=== PATIENT | male | born 1935 | race Caucasian/White ===

== ENCOUNTER 2021-10-10 19:40 | Emergency (ER) | payer MEDICARE ==
[~2021-10-10] VITALS: Ht 193 cm; Wt 108.9 kg
[2021-10-11 00:35] LABS: BASOPHILS # (AUTO) 0.1 (0.0-0.1); BASOPHILS % 0.5 % (0.0-1.0); EOSINOPHILS # (AUTO) 0.3 (0.0-0.4); HEMATOCRIT 35.8 % (38.2-49.6); HEMOGLOBIN 10.8 g/dL (14.0-18.0); LYMPHOCYTES # (AUTO) 2.5 (1.0-3.2); LYMPHOCYTES % 16.3 % (18.0-39.1); MEAN CORPUSCULAR HEMOGLOBIN 23.8 pg (28-32); MEAN CORPUSCULAR HGB CONC 30.2 g/dL (31-35); MONOCYTES # (AUTO) 1.2 (0.2-0.8); MONOCYTES % 7.9 % (4.4-11.3); NEUTROPHILS # (AUTO) 10.9 (2.1-6.9); PLATELET COUNT 286 x10e3/uL (140-360); RED BLOOD COUNT 4.53 x10e6/uL (4.3-5.7); RED CELL DISTRIBUTION WIDTH 16.9 % (11.7-14.4)
[2021-10-11 00:46] LABS: ANION GAP 15.9 mmol/L (8-16); CREATININE, SERUM 0.68 mg/dL (0.72-1.25); POTASSIUM 3.9 mmol/L (3.5-5.1)
[2021-10-11 02:02] LABS: CLARITY,URINE SL CLOUDY (CLEAR); COLOR,URINE YELLOW (YELLOW); KETONES,URINE NEGATIVE (NEGATIVE); LEUKOCYTE ESTERASE ,URINE SMALL (NEGATIVE); NITRITE,URINE NEGATIVE (NEGATIVE); PROTEIN,URINE DIPSTICK NEGATIVE (NEGATIVE); URINE UROBILINOGEN 0.2 mg/dL (0.2 - 1)
[2021-10-11 02:04] LABS: BACTERIA,URINE FEW /HPF; EPITHELIAL CELLS,URINE RARE /LPF; WBC,URINE (MAN) 21-50 /HPF (0-5)
[2021-10-11] MEDS ORDERED: LEVOFLOXACIN750 MG PO (02:15)
[2021-10-12] MEDS ORDERED: SPIRONOLACTONE25 MG PO (15:28)
[2021-10-12] MEDS ORDERED: FLOMAX0.4 MG PO (15:28)
[2021-10-12] MEDS ORDERED: ASPIRIN EC81 MG PO (15:28)
[2021-10-12] MEDS ORDERED: FINASTERIDE5 MG PO (15:28)
[2021-10-12] MEDS ORDERED: ATORVASTATIN CA10 MG PO (15:28)
[2021-10-12] MEDS ORDERED: METOPROLOL SUCC25 MG PO (15:28)
[2021-10-12] MEDS ORDERED: METFORMIN HCL500 MG PO (15:28)
== END 2021-10-11 03:55 | disposition home or self-care (01) ==
LOC: ER 19:58
DX: Z46.6 Encounter for fitting and adjustment of urinary device (principal); R33.9 Retention of urine, unspecified; R10.30 Lower abdominal pain, unspecified; E11.65 Type 2 diabetes mellitus with hyperglycemia; I10 Essential (primary) hypertension; E78.5 Hyperlipidemia, unspecified
CPT/HCPCS: 36415; 51703; 80048; 81001; 85025; 99284

== ENCOUNTER 2021-10-12 08:10 | Inpatient (IN) | payer MEDICARE ==
[~2021-10-12] VITALS: Ht 193 cm; Wt 108.9 kg
[~2021-10-12 08:10] MED LIST: LEVOFLOXACIN750 MG PO
[2021-10-12] MEDS ORDERED: ONDANSETRON HCL INJ 2MG/ML 2ML 2 MG/ML VIAL IV STA (08:27)
[2021-10-12] MEDS ORDERED: Morphine 2mg Syringe 2 MG/ML SYR IV STA (08:27)
[2021-10-12] MEDS ORDERED: LIDOCAINE/PRILOCAINE 2.5-2.5% KIT TOP ONE (08:30)
[2021-10-12] MEDS ORDERED: Morphine 2mg Syringe 2 MG/ML SYR IV PRN (10:00)
[2021-10-12] MEDS ORDERED: ONDANSETRON HCL INJ 2MG/ML 2ML 2 MG/ML VIAL IV PRN (10:00)
[2021-10-12 10:08] LABS: BASOPHILS # (AUTO) 0.1 (0.0-0.1); BASOPHILS % 0.7 % (0.0-1.0); EOSINOPHILS # (AUTO) 0.2 (0.0-0.4); HEMATOCRIT 35.2 % (38.2-49.6); HEMOGLOBIN 10.7 g/dL (14.0-18.0); LYMPHOCYTES # (AUTO) 1.2 (1.0-3.2); LYMPHOCYTES % 11.2 % (18.0-39.1); MEAN CORPUSCULAR HGB CONC 30.4 g/dL (31-35); MEAN CORPUSCULAR VOLUME 78.9 fL (81-99); MONOCYTES % 8.7 % (4.4-11.3); NEUTROPHILS # (AUTO) 8.5 (2.1-6.9); NEUTROPHILS % 76.9 % (38.7-80.0); PLATELET COUNT 271 x10e3/uL (140-360); RED BLOOD COUNT 4.46 x10e6/uL (4.3-5.7); RED CELL DISTRIBUTION WIDTH 17.2 % (11.7-14.4)
[2021-10-12 10:16] LABS: CLARITY,URINE HAZY (CLEAR); COLOR,URINE YELLOW (YELLOW); KETONES,URINE NEGATIVE (NEGATIVE); LEUKOCYTE ESTERASE ,URINE MODERATE (NEGATIVE); NITRITE,URINE POSITIVE (NEGATIVE); PROTEIN,URINE DIPSTICK 2+ (NEGATIVE); URINE UROBILINOGEN 0.2 mg/dL (0.2 - 1)
[2021-10-12 10:18] LABS: INR 1.05; PROTHROMBIN TIME 14.6 seconds (11.9-14.5)
[2021-10-12 10:19] LABS: BACTERIA,URINE MANY /HPF; EPITHELIAL CELLS,URINE FEW /LPF; RBC,URINE >50 /HPF (0-5); WBC,URINE (MAN) >50 /HPF (0-5)
[2021-10-12 10:19] LABS: PARTIAL THROMBOPLASTIN TIME 29.8 seconds (23.8-35.5)
[2021-10-12 10:27] LABS: ALBUMIN 2.9 g/dL (3.5-5.0); ALBUMIN/GLOBULIN RATIO 0.9 (0.8-2.0); ANION GAP 14.7 mmol/L (8-16); CALCIUM 8.8 mg/dL (8.4-10.2); CREATININE, SERUM 0.7 mg/dL (0.72-1.25); POTASSIUM 3.7 mmol/L (3.5-5.1)
[2021-10-12] MEDS ORDERED: HYDROCODONE/APAP 5MG-325MG TAB PO PRN (10:45)
[2021-10-12] MEDS: SODIUM CHLORIDE 0.9% 1000ML 1,000 ML IV SCH (11:00)
[2021-10-12] MEDS ORDERED: IOPAMIDOL 370 MG/ML 100 ML INFUS..BTL INJ ONE (11:49)
[2021-10-12 12:02] VITALS: BP 107/81
[2021-10-12] MEDS ORDERED: SODIUM CHLORIDE 0.9% 250ML 250 ML ONE (13:14)
[2021-10-12 13:41] VITALS: BP 107/81
[2021-10-12 14:09] VITALS: BP 107/81
[2021-10-12] MEDS ORDERED: SPIRONOLACTONE25 MG PO (15:28)
[2021-10-12] MEDS ORDERED: METFORMIN HCL500 MG PO (15:28)
[2021-10-12] MEDS ORDERED: FLOMAX0.4 MG PO (15:28)
[2021-10-12] MEDS ORDERED: FINASTERIDE5 MG PO (15:28)
[2021-10-12] MEDS ORDERED: METOPROLOL SUCC25 MG PO (15:28)
[2021-10-12] MEDS ORDERED: ATORVASTATIN CA10 MG PO (15:28)
[2021-10-12] MEDS ORDERED: ASPIRIN EC81 MG PO (15:28)
[2021-10-12 15:45] VITALS: BP 98/64
[2021-10-12] MEDS: SENNA-S TABLET PO SCH (17:00)
[2021-10-12] MEDS: FAMOTIDINE 20 MG TAB PO SCH (17:16)
[2021-10-12 20:00] VITALS: BP 107/62
[2021-10-12 22:45] VITALS: BP 107/62
[2021-10-13] VITALS (12 sets, daily range): BP systolic 106–126; BP diastolic 60–81
[2021-10-13] MEDS: SODIUM CHLORIDE 0.9% 1000ML 1,000 ML IV SCH ×2 (05:04→12:40)
[2021-10-13 05:47] LABS: BASOPHILS # (AUTO) 0.1 (0.0-0.1); EOSINOPHILS # (AUTO) 0.5 (0.0-0.4); EOSINOPHILS % 6.7 % (0.0-6.0); HEMATOCRIT 30.6 % (38.2-49.6); HEMOGLOBIN 9.6 g/dL (14.0-18.0); LYMPHOCYTES # (AUTO) 1.6 (1.0-3.2); LYMPHOCYTES % 19.6 % (18.0-39.1); MEAN CORPUSCULAR HEMOGLOBIN 24.1 pg (28-32); MEAN CORPUSCULAR HGB CONC 31.4 g/dL (31-35); MEAN CORPUSCULAR VOLUME 76.7 fL (81-99); MONOCYTES # (AUTO) 0.8 (0.2-0.8); MONOCYTES % 9.9 % (4.4-11.3); NEUTROPHILS % 62.5 % (38.7-80.0); PLATELET COUNT 248 x10e3/uL (140-360); RED BLOOD COUNT 3.99 x10e6/uL (4.3-5.7)
[2021-10-13 06:07] LABS: ALBUMIN 2.6 g/dL (3.5-5.0); ALBUMIN/GLOBULIN RATIO 0.9 (0.8-2.0); ANION GAP 13.1 mmol/L (8-16); CALCIUM 8.1 mg/dL (8.4-10.2); CREATININE, SERUM 0.66 mg/dL (0.72-1.25); POTASSIUM 4.1 mmol/L (3.5-5.1)
[2021-10-13] MEDS: FAMOTIDINE 20 MG TAB PO SCH ×2 (09:01→17:56)
[2021-10-13] MEDS: SENNA-S TABLET PO SCH ×2 (09:02→17:56)
[2021-10-14] VITALS (7 sets, daily range): BP systolic 108–133; BP diastolic 62–81
[2021-10-14] MEDS: SODIUM CHLORIDE 0.9% 1000ML 1,000 ML IV SCH (02:00)
[2021-10-14] MEDS: SENNA-S TABLET PO SCH ×2 (10:31→17:00)
[2021-10-14] MEDS: FAMOTIDINE 20 MG TAB PO SCH ×2 (10:32→16:30)
[2021-10-14] MEDS: METOPROLOL SUCCINATE 25 MG TAB XL PO SCH (10:35)
[2021-10-14] MEDS ORDERED: ONDANSETRON HCL 4 MG ORAL DISINTEGRATING TAB PO PRN (12:45)
[2021-10-14] MEDS: TAMSULOSIN HCL 0.4 MG CAP PO SCH (17:00)
[2021-10-14] MEDS ORDERED: ATORVASTATIN 40 MG TAB PO SCH (21:00)
[2021-10-15] VITALS: BP 146/80
[2021-10-15 04:00] VITALS: BP 146/95
[2021-10-15] MEDS: SODIUM CHLORIDE 0.9% 1000ML 1,000 ML IV SCH ×2 (05:19→06:03)
[2021-10-15] MEDS: METOPROLOL SUCCINATE 25 MG TAB XL PO SCH (05:21)
[2021-10-15 07:54] VITALS: BP 130/94
[2021-10-15] MEDS: SENNA-S TABLET PO SCH (08:41)
[2021-10-15] MEDS: TAMSULOSIN HCL 0.4 MG CAP PO SCH (08:41)
[2021-10-15] MEDS: FAMOTIDINE 20 MG TAB PO SCH (08:41)
[2021-10-15] MEDS ORDERED: FINASTERIDE 5 MG TAB PO SCH (09:00)
[2021-10-15] MEDS ORDERED: FLUCONAZOLE 100 MG TAB PO SCH (09:00)
[2021-10-15 09:32] LABS: ANION GAP 14.7 mmol/L (8-16); CALCIUM 8.3 mg/dL (8.4-10.2); CREATININE, SERUM 0.64 mg/dL (0.72-1.25); POTASSIUM 3.7 mmol/L (3.5-5.1)
[2021-10-15 09:44] LABS: BASOPHILS # (AUTO) 0.1 (0.0-0.1); BASOPHILS % 1.1 % (0.0-1.0); EOSINOPHILS # (AUTO) 0.5 (0.0-0.4); EOSINOPHILS % 5.6 % (0.0-6.0); HEMATOCRIT 37.8 % (38.2-49.6); LYMPHOCYTES # (AUTO) 1.6 (1.0-3.2); LYMPHOCYTES % 16.6 % (18.0-39.1); MEAN CORPUSCULAR HEMOGLOBIN 23.8 pg (28-32); MEAN CORPUSCULAR HGB CONC 29.1 g/dL (31-35); MEAN CORPUSCULAR VOLUME 81.6 fL (81-99); MONOCYTES # (AUTO) 0.8 (0.2-0.8); MONOCYTES % 8.8 % (4.4-11.3); NEUTROPHILS # (AUTO) 6.4 (2.1-6.9); NEUTROPHILS % 67.7 % (38.7-80.0); PLATELET COUNT 235 x10e3/uL (140-360); RED BLOOD COUNT 4.63 x10e6/uL (4.3-5.7); RED CELL DISTRIBUTION WIDTH 17.2 % (11.7-14.4)
[2021-10-15 12:29] VITALS: BP 126/63
== END 2021-10-15 15:45 | disposition home or self-care (01) | DRG 699 ==
LOC: ER 08:14 → ERHOLD 10:04 → MED/SURG2 11:22
PROVIDERS: ADMIT Internal Medicine; ATTEND Internal Medicine
DX: T83.511A Infection and inflammatory reaction due to indwelling urethral catheter, initial encounter (principal); N13.8 Other obstructive and reflux uropathy; N41.0 Acute prostatitis; N39.0 Urinary tract infection, site not specified; I10 Essential (primary) hypertension; E11.9 Type 2 diabetes mellitus without complications; N40.1 Benign prostatic hyperplasia with lower urinary tract symptoms; R33.8 Other retention of urine; I48.91 Unspecified atrial fibrillation; E78.5 Hyperlipidemia, unspecified; T83.091A Other mechanical complication of indwelling urethral catheter, initial encounter; N31.9 Neuromuscular dysfunction of bladder, unspecified; D64.9 Anemia, unspecified; E66.9 Obesity, unspecified; R39.14 Feeling of incomplete bladder emptying; Z95.5 Presence of coronary angioplasty implant and graft; Z86.73 Personal history of transient ischemic attack (TIA), and cerebral infarction without residual deficits; Z95.818 Presence of other cardiac implants and grafts; Z82.49 Family history of ischemic heart disease and other diseases of the circulatory system; Z68.29 Body mass index [BMI] 29.0-29.9, adult; Z79.82 Long term (current) use of aspirin; Z79.84 Long term (current) use of oral hypoglycemic drugs
CPT/HCPCS: 0223U; 36415; 51700; 71045; 71046; 74178; 80048; 80053; 81001; 82948; 83880; 85025; 85610; 85730; 87040; 87086; 87186; 96360; 96361; 99251; 99285; J0696; J2270; J2405; J2543; J7030; J7050; Q9967

== ENCOUNTER 2021-10-16 11:15 | Inpatient (IN) | payer MEDICARE ==
[~2021-10-16] VITALS: Ht 193 cm; Wt 158.8 kg
[~2021-10-16 11:15] MED LIST changes: +ASPIRIN EC81 MG PO; +ATORVASTATIN CA10 MG PO; +FINASTERIDE5 MG PO; +FLOMAX0.4 MG PO; +METFORMIN HCL500 MG PO; +METOPROLOL SUCC25 MG PO; +SPIRONOLACTONE25 MG PO
[2021-10-16 12:55] LABS: BASOPHILS # (AUTO) 0.1 (0.0-0.1); BASOPHILS % 0.7 % (0.0-1.0); EOSINOPHILS # (AUTO) 0.3 (0.0-0.4); EOSINOPHILS % 2.5 % (0.0-6.0); HEMATOCRIT 36.5 % (38.2-49.6); HEMOGLOBIN 11.1 g/dL (14.0-18.0); LYMPHOCYTES # (AUTO) 1.4 (1.0-3.2); LYMPHOCYTES % 11.9 % (18.0-39.1); MEAN CORPUSCULAR HEMOGLOBIN 23.9 pg (28-32); MEAN CORPUSCULAR HGB CONC 30.4 g/dL (31-35); MEAN CORPUSCULAR VOLUME 78.7 fL (81-99); MONOCYTES % 8.2 % (4.4-11.3); NEUTROPHILS % 76.4 % (38.7-80.0); PLATELET COUNT 293 x10e3/uL (140-360); RED BLOOD COUNT 4.64 x10e6/uL (4.3-5.7); RED CELL DISTRIBUTION WIDTH 17.1 % (11.7-14.4)
[2021-10-16 13:03] LABS: INR 1.03; PROTHROMBIN TIME 14.4 seconds (11.9-14.5)
[2021-10-16 13:12] LABS: ALBUMIN 2.9 g/dL (3.5-5.0); ALBUMIN/GLOBULIN RATIO 0.8 (0.8-2.0); CALCIUM 8.7 mg/dL (8.4-10.2); CREATININE, SERUM 0.67 mg/dL (0.72-1.25)
[2021-10-16 13:14] LABS: COLOR,URINE YELLOW (YELLOW)
[2021-10-16 13:15] LABS: CLARITY,URINE SL CLOUDY (CLEAR); KETONES,URINE NEGATIVE (NEGATIVE); LEUKOCYTE ESTERASE ,URINE SMALL (NEGATIVE); NITRITE,URINE NEGATIVE (NEGATIVE); PROTEIN,URINE DIPSTICK 1+ (NEGATIVE); URINE UROBILINOGEN 0.2 mg/dL (0.2 - 1)
[2021-10-16 13:24] LABS: BACTERIA,URINE FEW /HPF; EPITHELIAL CELLS,URINE FEW /LPF; RBC,URINE >50 /HPF (0-5)
[2021-10-16 18:12] VITALS: BP 153/96
[2021-10-16 18:24] VITALS: BP 153/96
[2021-10-16 20:00] VITALS: BP_SYST 120; BP_SYST 153; BP_DIAS 68; BP_DIAS 96
[2021-10-16] MEDS: ATORVASTATIN 40 MG TAB PO SCH (21:00)
[2021-10-16] MEDS: TAMSULOSIN HCL 0.4 MG CAP PO SCH (21:00)
[2021-10-16] MEDS: METOPROLOL SUCCINATE 25 MG TAB XL PO SCH (22:30)
[2021-10-16] MEDS ORDERED: HYDRALAZINE HCL 20 MG/ML VIAL IV PRN (22:30)
[2021-10-16] MEDS ORDERED: ALBUTEROL/IPRATROPIUM 3 ML NEB NEB PRN (22:30)
[2021-10-16] MEDS ORDERED: ACETAMINOPHEN 325 MG TAB PO PRN (22:30)
[2021-10-16] MEDS: ENOXAPARIN SOD INJ 60 MG/0.6 ML SYR SC SCH (22:30)
[2021-10-16] MEDS ORDERED: HYDROCODONE/APAP 7.5MG-325MG 1 EA TAB PO PRN (22:30)
[2021-10-16] MEDS ORDERED: SODIUM CHLORIDE 0.9% 250ML 250 ML ONE (23:38)
[2021-10-17] VITALS (8 sets, daily range): BP systolic 115–137; BP diastolic 71–79
[2021-10-17] MEDS: ALBUTEROL/IPRATROPIUM 3 ML NEB NEB SCH ×4 (01:03→19:03)
[2021-10-17 05:38] LABS: BASOPHILS # (AUTO) 0.1 (0.0-0.1); BASOPHILS % 0.8 % (0.0-1.0); EOSINOPHILS # (AUTO) 0.5 (0.0-0.4); EOSINOPHILS % 6.4 % (0.0-6.0); HEMATOCRIT 30.9 % (38.2-49.6); HEMOGLOBIN 9.4 g/dL (14.0-18.0); LYMPHOCYTES # (AUTO) 1.6 (1.0-3.2); LYMPHOCYTES % 20.8 % (18.0-39.1); MEAN CORPUSCULAR HEMOGLOBIN 23.5 pg (28-32); MEAN CORPUSCULAR HGB CONC 30.4 g/dL (31-35); MEAN CORPUSCULAR VOLUME 77.3 fL (81-99); MONOCYTES # (AUTO) 0.8 (0.2-0.8); MONOCYTES % 9.9 % (4.4-11.3); NEUTROPHILS # (AUTO) 4.8 (2.1-6.9); NEUTROPHILS % 61.7 % (38.7-80.0); PLATELET COUNT 256 x10e3/uL (140-360); RED CELL DISTRIBUTION WIDTH 17.1 % (11.7-14.4)
[2021-10-17 06:02] LABS: ANION GAP 14.6 mmol/L (8-16); CALCIUM 8.3 mg/dL (8.4-10.2); CREATININE, SERUM 0.59 mg/dL (0.72-1.25); POTASSIUM 3.6 mmol/L (3.5-5.1)
[2021-10-17] MEDS: ENOXAPARIN SOD INJ 60 MG/0.6 ML SYR SC SCH ×2 (09:11→21:06)
[2021-10-17] MEDS: FINASTERIDE 5 MG TAB PO SCH (09:11)
[2021-10-17] MEDS: SENNA-S TABLET PO SCH ×2 (09:11→16:46)
[2021-10-17] MEDS: SODIUM CHLORIDE 0.9% 1000ML 1,000 ML IV SCH (13:48)
[2021-10-17] MEDS ORDERED: LIDOCAINE HCL 1% LOCAL INJ 20 ML VIAL ONE (14:13)
[2021-10-17] MEDS ORDERED: SODIUM CHLORIDE 0.9% 500ML 500 ML ONE (14:13)
[2021-10-17] MEDS: TAMSULOSIN HCL 0.4 MG CAP PO SCH (21:05)
[2021-10-17] MEDS: ATORVASTATIN 40 MG TAB PO SCH (21:05)
[2021-10-17] MEDS: METOPROLOL SUCCINATE 25 MG TAB XL PO SCH (21:06)
[2021-10-18] VITALS (8 sets, daily range): BP systolic 127–168; BP diastolic 66–97
[2021-10-18] MEDS: ALBUTEROL/IPRATROPIUM 3 ML NEB NEB SCH ×4 (00:10→19:00)
[2021-10-18 05:02] LABS: BASOPHILS # (AUTO) 0.1 (0.0-0.1); BASOPHILS % 0.9 % (0.0-1.0); EOSINOPHILS # (AUTO) 0.4 (0.0-0.4); EOSINOPHILS % 5.7 % (0.0-6.0); HEMATOCRIT 30.2 % (38.2-49.6); HEMOGLOBIN 9.6 g/dL (14.0-18.0); LYMPHOCYTES # (AUTO) 1.5 (1.0-3.2); LYMPHOCYTES % 19.6 % (18.0-39.1); MEAN CORPUSCULAR HEMOGLOBIN 24.3 pg (28-32); MEAN CORPUSCULAR HGB CONC 31.8 g/dL (31-35); MEAN CORPUSCULAR VOLUME 76.5 fL (81-99); MONOCYTES # (AUTO) 0.8 (0.2-0.8); MONOCYTES % 10.1 % (4.4-11.3); NEUTROPHILS # (AUTO) 4.9 (2.1-6.9); NEUTROPHILS % 63.3 % (38.7-80.0); PLATELET COUNT 251 x10e3/uL (140-360); RED BLOOD COUNT 3.95 x10e6/uL (4.3-5.7); RED CELL DISTRIBUTION WIDTH 17.1 % (11.7-14.4)
[2021-10-18] MEDS: SODIUM CHLORIDE 0.9% 1000ML 1,000 ML IV SCH (05:12)
[2021-10-18 05:18] LABS: ALBUMIN 2.4 g/dL (3.5-5.0); ALBUMIN/GLOBULIN RATIO 0.8 (0.8-2.0); ANION GAP 12.6 mmol/L (8-16); CALCIUM 8.1 mg/dL (8.4-10.2); CREATININE, SERUM 0.58 mg/dL (0.72-1.25); POTASSIUM 3.6 mmol/L (3.5-5.1)
[2021-10-18] MEDS: SENNA-S TABLET PO SCH ×2 (09:05→17:31)
[2021-10-18] MEDS: FINASTERIDE 5 MG TAB PO SCH (09:06)
[2021-10-18] MEDS: ENOXAPARIN SOD INJ 60 MG/0.6 ML SYR SC SCH ×2 (09:06→20:41)
[2021-10-18] MEDS: ATORVASTATIN 40 MG TAB PO SCH (20:41)
[2021-10-18] MEDS: TAMSULOSIN HCL 0.4 MG CAP PO SCH (20:41)
[2021-10-18] MEDS: METOPROLOL SUCCINATE 25 MG TAB XL PO SCH (20:41)
[2021-10-19] VITALS (8 sets, daily range): BP systolic 136–157; BP diastolic 73–91
[2021-10-19] MEDS: ALBUTEROL/IPRATROPIUM 3 ML NEB NEB SCH ×4 (01:15→19:10)
[2021-10-19] MEDS: SODIUM CHLORIDE 0.9% 1000ML 1,000 ML IV SCH (02:43)
[2021-10-19] MEDS: FINASTERIDE 5 MG TAB PO SCH (08:15)
[2021-10-19] MEDS: SENNA-S TABLET PO SCH ×2 (08:15→16:25)
[2021-10-19] MEDS ORDERED: POTASSIUM CHLORIDE 10MEQ EA PO NR (09:45)
[2021-10-19] MEDS ORDERED: FUROSEMIDE INJ 10 MG/ML 4 ML VIAL IV NR (09:45)
[2021-10-19] MEDS: TAMSULOSIN HCL 0.4 MG CAP PO SCH (21:31)
[2021-10-19] MEDS: METOPROLOL SUCCINATE 25 MG TAB XL PO SCH (21:31)
[2021-10-19] MEDS: ATORVASTATIN 40 MG TAB PO SCH (21:32)
[2021-10-20] VITALS (7 sets, daily range): BP systolic 96–154; BP diastolic 69–94
[2021-10-20] MEDS: ALBUTEROL/IPRATROPIUM 3 ML NEB NEB SCH ×5 (01:45→19:42)
[2021-10-20 05:38] LABS: BASOPHILS # (AUTO) 0.1 (0.0-0.1); BASOPHILS % 0.9 % (0.0-1.0); EOSINOPHILS # (AUTO) 0.6 (0.0-0.4); EOSINOPHILS % 7.1 % (0.0-6.0); HEMOGLOBIN 9.8 g/dL (14.0-18.0); LYMPHOCYTES # (AUTO) 1.4 (1.0-3.2); LYMPHOCYTES % 18.2 % (18.0-39.1); MEAN CORPUSCULAR HEMOGLOBIN 23.6 pg (28-32); MEAN CORPUSCULAR HGB CONC 30.6 g/dL (31-35); MEAN CORPUSCULAR VOLUME 77.1 fL (81-99); MONOCYTES # (AUTO) 0.8 (0.2-0.8); NEUTROPHILS % 63.5 % (38.7-80.0); PLATELET COUNT 274 x10e3/uL (140-360); RED BLOOD COUNT 4.15 x10e6/uL (4.3-5.7); RED CELL DISTRIBUTION WIDTH 17.2 % (11.7-14.4)
[2021-10-20 06:16] LABS: ANION GAP 12.5 mmol/L (8-16); CALCIUM 8.6 mg/dL (8.4-10.2); CREATININE, SERUM 0.62 mg/dL (0.72-1.25); POTASSIUM 3.5 mmol/L (3.5-5.1)
[2021-10-20] MEDS: FINASTERIDE 5 MG TAB PO SCH (09:00)
[2021-10-20] MEDS: SENNA-S TABLET PO SCH ×2 (09:00→16:47)
[2021-10-20] MEDS ORDERED: IOPAMIDOL 610MG/1ML 300 MG/ML VIAL IV ONE (12:03)
[2021-10-20] MEDS ORDERED: LIDOCAINE 1% W/EPINEPHRINE 20 ML VIAL ONE (12:03)
[2021-10-20] MEDS ORDERED: BUPIVACAINE 0.25% 30ML SDV ONE (12:03)
[2021-10-20] MEDS ORDERED: B&O 60MG R/S 60 MG SUPP PR ONE (12:03)
[2021-10-20] MEDS ORDERED: LIDOCAINE 1% W/EPINEPHRINE 20 ML VIAL INJ ONE (12:57)
[2021-10-20] MEDS ORDERED: BUPIVACAINE 0.25% 30ML SDV INJ ONE (12:57)
[2021-10-20] MEDS ORDERED: SUCCINYLCHOLINE CHLORIDE 20 MG/ML 10ML VIAL ONE (13:01)
[2021-10-20] MEDS ORDERED: PROPOFOL IV EMULSION 10 MG/ML 20 ML VIAL ONE (13:01)
[2021-10-20] MEDS ORDERED: ROCURONIUM BROMIDE 10 MG/ML 5ML VIAL IV ONE (13:01)
[2021-10-20] MEDS ORDERED: POVIDONE IODINE 0.05% 0.05 % ML PO ONE (13:01)
[2021-10-20] MEDS ORDERED: DEXAMETHASONE SOD PHOS INJ 4 MG/ML SDV ONE (13:01)
[2021-10-20] MEDS ORDERED: SEVOFLURANE INHAL SOLN 250 ML PEN BTL ONE (13:01)
[2021-10-20] MEDS ORDERED: ONDANSETRON HCL INJ 2MG/ML 2ML 2 MG/ML VIAL ONE (13:01)
[2021-10-20] MEDS: METOPROLOL SUCCINATE 25 MG TAB XL PO SCH (21:50)
[2021-10-20] MEDS: TAMSULOSIN HCL 0.4 MG CAP PO SCH (21:50)
[2021-10-20] MEDS: ATORVASTATIN 40 MG TAB PO SCH (21:50)
[2021-10-21] VITALS (8 sets, daily range): BP systolic 95–152; BP diastolic 53–87
[2021-10-21] MEDS: ALBUTEROL/IPRATROPIUM 3 ML NEB NEB SCH ×4 (00:45→19:20)
[2021-10-21 05:47] LABS: BASOPHILS % 0.5 % (0.0-1.0); EOSINOPHILS % 0.5 % (0.0-6.0); HEMATOCRIT 32.1 % (38.2-49.6); HEMOGLOBIN 9.7 g/dL (14.0-18.0); LYMPHOCYTES # (AUTO) 1.2 (1.0-3.2); LYMPHOCYTES % 15.8 % (18.0-39.1); MEAN CORPUSCULAR HEMOGLOBIN 23.4 pg (28-32); MEAN CORPUSCULAR HGB CONC 30.2 g/dL (31-35); MEAN CORPUSCULAR VOLUME 77.3 fL (81-99); MONOCYTES # (AUTO) 0.7 (0.2-0.8); MONOCYTES % 9.8 % (4.4-11.3); NEUTROPHILS # (AUTO) 5.3 (2.1-6.9); PLATELET COUNT 294 x10e3/uL (140-360); RED BLOOD COUNT 4.15 x10e6/uL (4.3-5.7); RED CELL DISTRIBUTION WIDTH 17.1 % (11.7-14.4)
[2021-10-21 06:31] LABS: ANION GAP 12.9 mmol/L (8-16); CALCIUM 8.2 mg/dL (8.4-10.2); CREATININE, SERUM 0.66 mg/dL (0.72-1.25); POTASSIUM 3.9 mmol/L (3.5-5.1)
[2021-10-21] MEDS: SENNA-S TABLET PO SCH ×2 (10:06→17:20)
[2021-10-21] MEDS: FINASTERIDE 5 MG TAB PO SCH (10:06)
[2021-10-21] MEDS ORDERED: FENTANYL CITRATE/PF 100MCG/2 ML INJ ONE (13:31)
[2021-10-21] MEDS: TAMSULOSIN HCL 0.4 MG CAP PO SCH (22:23)
[2021-10-21] MEDS: METOPROLOL SUCCINATE 25 MG TAB XL PO SCH (22:23)
[2021-10-21] MEDS: ATORVASTATIN 40 MG TAB PO SCH (22:24)
[2021-10-22] VITALS: BP 127/67
[2021-10-22] MEDS: ALBUTEROL/IPRATROPIUM 3 ML NEB NEB SCH ×2 (00:10→06:12)
[2021-10-22 08:26] VITALS: BP 120/65
[2021-10-22] MEDS: FINASTERIDE 5 MG TAB PO SCH (09:26)
[2021-10-22] MEDS: SENNA-S TABLET PO SCH (09:26)
[2021-10-22 11:54] VITALS: BP 140/95
== END 2021-10-22 12:10 | disposition home or self-care (01) | DRG 660 ==
LOC: ER 11:41 → ERHOLD 13:11 → MED/SURG2 17:39
PROVIDERS: ADMIT Internal Medicine; ATTEND Internal Medicine
PROC: 06H03DZ Insertion of Intraluminal Device into Inferior Vena Cava, Percutaneous Approach (ICD-10-PCS; 2021-10-16)
PROC: 0T768ZZ Dilation of Right Ureter, Via Natural or Artificial Opening Endoscopic (ICD-10-PCS; 2021-10-20)
PROC: BT1D1ZZ Fluoroscopy of Right Kidney, Ureter and Bladder using Low Osmolar Contrast (ICD-10-PCS; 2021-10-20)
PROC: 0T9B80Z Drainage of Bladder with Drainage Device, Via Natural or Artificial Opening Endoscopic (ICD-10-PCS; principal; 2021-10-20 12:13)
DX: N31.9 Neuromuscular dysfunction of bladder, unspecified (principal); I48.20 Chronic atrial fibrillation, unspecified; I82.412 Acute embolism and thrombosis of left femoral vein; I50.42 Chronic combined systolic (congestive) and diastolic (congestive) heart failure; N40.1 Benign prostatic hyperplasia with lower urinary tract symptoms; R33.8 Other retention of urine; I11.0 Hypertensive heart disease with heart failure; I25.10 Atherosclerotic heart disease of native coronary artery without angina pectoris; Z79.01 Long term (current) use of anticoagulants
CPT/HCPCS: 0223U; 36415; 37191; 51700; 74420; 74470; 80048; 80053; 81001; 82948; 85025; 85610; 87040; 87086; 93005; 93971; 94640; 94799; 96361; 99251; 99285; C1758; C1769; J0330; J1100; J1650; J2001; J2405; J3010; J7030; J7040; J7050

== ENCOUNTER 2021-11-07 09:32 | Inpatient (IN) | payer MEDICARE ==
[~2021-11-07] VITALS: Ht 193 cm; Wt 127.9 kg
[2021-11-07 14:06] VITALS: BP 112/73
[2021-11-07 14:08] VITALS: BP 112/73
[2021-11-07 15:03] VITALS: BP 112/73
[2021-11-07 16:56] VITALS: BP 101/72
[2021-11-07 17:01] VITALS: BP 103/64
[2021-11-07] MEDS: METFORMIN HCL 500 MG TAB PO SCH (17:46)
[2021-11-07 20:00] VITALS: BP 112/76
[2021-11-07] MEDS: TAMSULOSIN HCL 0.4 MG CAP PO SCH (21:37)
[2021-11-07] MEDS: ATORVASTATIN 40 MG TAB PO SCH (21:37)
[2021-11-08] VITALS (7 sets, daily range): BP systolic 96–156; BP diastolic 65–88
[2021-11-08] MEDS ORDERED: SPIRONOLACTONE 25 MG TAB PO SCH (09:00)
[2021-11-08] MEDS: METFORMIN HCL 500 MG TAB PO SCH ×2 (09:15→17:11)
[2021-11-08] MEDS: METOPROLOL SUCCINATE 25 MG TAB XL PO SCH (09:16)
[2021-11-08] MEDS: FINASTERIDE 5 MG TAB PO SCH (09:16)
[2021-11-08] MEDS ORDERED: DEXTROSE 50% SYRINGE 50 ML IV PRN (10:15)
[2021-11-08] MEDS ORDERED: METOPROLOL TARTRATE INJ 1 MG/ML VIAL IV PRN (10:45)
[2021-11-08] MEDS: INSULIN LISPRO 100 UNIT/1 ML 3ML VIAL SQ SCH ×3 (11:30→21:12)
[2021-11-08] MEDS: OXYBUTYNIN CHLORIDE 5 MG TAB PO SCH ×3 (12:21→21:07)
[2021-11-08] MEDS: LACTULOSE SYRUP 20 GM/30 ML UDC PO SCH ×2 (12:37→17:10)
[2021-11-08] MEDS: SENNA-S TABLET PO SCH ×2 (12:37→17:10)
[2021-11-08 17:04] LABS: CLARITY,URINE CLOUDY (CLEAR); COLOR,URINE RED (YELLOW)
[2021-11-08 17:06] LABS: KETONES,URINE 1+ (NEGATIVE); LEUKOCYTE ESTERASE ,URINE LARGE (NEGATIVE); NITRITE,URINE NEGATIVE (NEGATIVE); PROTEIN,URINE DIPSTICK 2+ (NEGATIVE); URINE UROBILINOGEN 2 mg/dL (0.2 - 1)
[2021-11-08 17:07] LABS: BACTERIA,URINE FEW /HPF; EPITHELIAL CELLS,URINE FEW /LPF; MUCUS,URINE FEW (RARE); RBC,URINE >50 /HPF (0-5)
[2021-11-08] MEDS: POLYETHYLENE GLYCOL 3350 17 GM PACK PO SCH (17:10)
[2021-11-08] MEDS: ATORVASTATIN 40 MG TAB PO SCH (21:07)
[2021-11-08] MEDS: TAMSULOSIN HCL 0.4 MG CAP PO SCH (21:08)
[2021-11-09] VITALS (9 sets, daily range): BP systolic 97–118; BP diastolic 63–84
[2021-11-09 05:53] LABS: BASOPHILS # (AUTO) 0.1 (0.0-0.1); BASOPHILS % 0.8 % (0.0-1.0); EOSINOPHILS # (AUTO) 0.6 (0.0-0.4); EOSINOPHILS % 6.7 % (0.0-6.0); HEMATOCRIT 26.3 % (38.2-49.6); HEMOGLOBIN 8.3 g/dL (14.0-18.0); LYMPHOCYTES # (AUTO) 1.7 (1.0-3.2); MEAN CORPUSCULAR HEMOGLOBIN 23.1 pg (28-32); MEAN CORPUSCULAR HGB CONC 31.6 g/dL (31-35); MEAN CORPUSCULAR VOLUME 73.1 fL (81-99); MONOCYTES # (AUTO) 0.9 (0.2-0.8); MONOCYTES % 10.2 % (4.4-11.3); NEUTROPHILS # (AUTO) 5.3 (2.1-6.9); PLATELET COUNT 244 x10e3/uL (140-360); RED CELL DISTRIBUTION WIDTH 17.5 % (11.7-14.4)
[2021-11-09 06:13] LABS: ANION GAP 15.7 mmol/L (8-16); CREATININE, SERUM 0.79 mg/dL (0.72-1.25); POTASSIUM 4.7 mmol/L (3.5-5.1)
[2021-11-09] MEDS: POLYETHYLENE GLYCOL 3350 17 GM PACK PO SCH ×2 (09:20→16:38)
[2021-11-09] MEDS: OXYBUTYNIN CHLORIDE 5 MG TAB PO SCH ×3 (09:20→20:59)
[2021-11-09] MEDS: INSULIN LISPRO 100 UNIT/1 ML 3ML VIAL SQ SCH ×4 (09:20→23:04)
[2021-11-09] MEDS: SENNA-S TABLET PO SCH ×2 (09:20→16:27)
[2021-11-09] MEDS: LACTULOSE SYRUP 20 GM/30 ML UDC PO SCH ×2 (09:20→16:27)
[2021-11-09] MEDS: FINASTERIDE 5 MG TAB PO SCH (09:20)
[2021-11-09] MEDS: METOPROLOL SUCCINATE 25 MG TAB XL PO SCH (09:21)
[2021-11-09] MEDS: METFORMIN HCL 500 MG TAB PO SCH ×2 (09:21→16:27)
[2021-11-09] MEDS: TAMSULOSIN HCL 0.4 MG CAP PO SCH (20:59)
[2021-11-09] MEDS: ATORVASTATIN 40 MG TAB PO SCH (20:59)
[2021-11-10 05:58] VITALS: BP 98/72
[2021-11-10 07:55] VITALS: BP 90/66
[2021-11-10 08:03] VITALS: BP 90/66
[2021-11-10] MEDS: OXYBUTYNIN CHLORIDE 5 MG TAB PO SCH ×3 (08:23→22:00)
[2021-11-10] MEDS: FINASTERIDE 5 MG TAB PO SCH (08:23)
[2021-11-10] MEDS: METOPROLOL SUCCINATE 25 MG TAB XL PO SCH (08:24)
[2021-11-10] MEDS: LACTULOSE SYRUP 20 GM/30 ML UDC PO SCH ×2 (08:24→16:42)
[2021-11-10] MEDS: POLYETHYLENE GLYCOL 3350 17 GM PACK PO SCH ×2 (08:25→16:42)
[2021-11-10] MEDS: SENNA-S TABLET PO SCH ×2 (08:25→16:42)
[2021-11-10] MEDS: METFORMIN HCL 500 MG TAB PO SCH ×2 (08:25→16:42)
[2021-11-10] MEDS: INSULIN LISPRO 100 UNIT/1 ML 3ML VIAL SQ SCH ×4 (09:13→21:00)
[2021-11-10 10:51] LABS: INR 1.09; PROTHROMBIN TIME 15.1 seconds (11.9-14.5)
[2021-11-10 15:38] VITALS: BP 108/78
[2021-11-10 20:00] VITALS: BP 108/78
[2021-11-10 20:03] VITALS: BP 112/67
[2021-11-10] MEDS: TAMSULOSIN HCL 0.4 MG CAP PO SCH (22:00)
[2021-11-10] MEDS: ATORVASTATIN 40 MG TAB PO SCH (22:00)
[2021-11-11] VITALS (7 sets, daily range): BP systolic 103–116; BP diastolic 58–77
[2021-11-11] MEDS ORDERED: SODIUM CHLORIDE 0.9% 250ML 250 ML ONE (03:08)
[2021-11-11] MEDS: INSULIN LISPRO 100 UNIT/1 ML 3ML VIAL SQ SCH ×4 (07:30→21:00)
[2021-11-11] MEDS: METFORMIN HCL 500 MG TAB PO SCH ×2 (08:00→16:32)
[2021-11-11] MEDS: SENNA-S TABLET PO SCH ×2 (09:00→16:31)
[2021-11-11] MEDS: FINASTERIDE 5 MG TAB PO SCH (09:00)
[2021-11-11] MEDS: METOPROLOL SUCCINATE 25 MG TAB XL PO SCH (09:00)
[2021-11-11] MEDS: OXYBUTYNIN CHLORIDE 5 MG TAB PO SCH ×3 (09:00→21:17)
[2021-11-11] MEDS: POLYETHYLENE GLYCOL 3350 17 GM PACK PO SCH ×2 (09:00→16:31)
[2021-11-11] MEDS: LACTULOSE SYRUP 20 GM/30 ML UDC PO SCH ×2 (09:00→16:32)
[2021-11-11] MEDS: ATORVASTATIN 40 MG TAB PO SCH (21:17)
[2021-11-11] MEDS: TAMSULOSIN HCL 0.4 MG CAP PO SCH (21:17)
[2021-11-12] VITALS (7 sets, daily range): BP systolic 98–141; BP diastolic 63–89
[2021-11-12] MEDS: INSULIN LISPRO 100 UNIT/1 ML 3ML VIAL SQ SCH ×4 (07:30→21:35)
[2021-11-12] MEDS: METFORMIN HCL 500 MG TAB PO SCH ×2 (08:00→17:33)
[2021-11-12] MEDS: OXYBUTYNIN CHLORIDE 5 MG TAB PO SCH ×3 (09:00→21:30)
[2021-11-12] MEDS: LACTULOSE SYRUP 20 GM/30 ML UDC PO SCH ×2 (09:00→17:33)
[2021-11-12] MEDS: SENNA-S TABLET PO SCH ×2 (09:00→17:33)
[2021-11-12] MEDS: FINASTERIDE 5 MG TAB PO SCH (09:00)
[2021-11-12] MEDS: POLYETHYLENE GLYCOL 3350 17 GM PACK PO SCH ×2 (09:00→17:33)
[2021-11-12] MEDS: METOPROLOL SUCCINATE 25 MG TAB XL PO SCH (09:00)
[2021-11-12] MEDS ORDERED: IOPAMIDOL 300MG/ML 100 ML INFUS..BTL IV ONE ×3 (10:04→12:41)
[2021-11-12] MEDS ORDERED: HEPARIN SOD/SOD CHLORIDE 1,000 ML ONE (10:04)
[2021-11-12] MEDS ORDERED: SODIUM CHLORIDE 0.9% 1000ML 1,000 ML ONE (10:04)
[2021-11-12] MEDS ORDERED: IOPAMIDOL 300MG/ML 50ML INFUS..BTL IV ONE (10:04)
[2021-11-12] MEDS ORDERED: LIDOCAINE HCL 1% LOCAL INJ 20 ML VIAL ONE (11:07)
[2021-11-12] MEDS ORDERED: FENTANYL CITRATE/PF 100MCG/2 ML INJ ONE ×2 (11:37→12:46)
[2021-11-12] MEDS ORDERED: MIDAZOLAM HCL 2 MG/2 ML VIAL ONE (11:37)
[2021-11-12] MEDS: TAMSULOSIN HCL 0.4 MG CAP PO SCH (21:30)
[2021-11-12] MEDS: ATORVASTATIN 40 MG TAB PO SCH (21:31)
[2021-11-13] VITALS (7 sets, daily range): BP systolic 94–117; BP diastolic 63–75
[2021-11-13] MEDS: POLYETHYLENE GLYCOL 3350 17 GM PACK PO SCH ×2 (08:41→16:37)
[2021-11-13] MEDS: LACTULOSE SYRUP 20 GM/30 ML UDC PO SCH ×2 (08:42→16:35)
[2021-11-13] MEDS: METOPROLOL SUCCINATE 25 MG TAB XL PO SCH (08:42)
[2021-11-13] MEDS: OXYBUTYNIN CHLORIDE 5 MG TAB PO SCH ×3 (08:42→21:43)
[2021-11-13] MEDS: METFORMIN HCL 500 MG TAB PO SCH ×2 (08:43→16:36)
[2021-11-13] MEDS: SENNA-S TABLET PO SCH ×2 (08:43→16:37)
[2021-11-13] MEDS: FINASTERIDE 5 MG TAB PO SCH (08:43)
[2021-11-13] MEDS: INSULIN LISPRO 100 UNIT/1 ML 3ML VIAL SQ SCH ×4 (10:27→21:00)
[2021-11-13] MEDS ORDERED: SODIUM CHLORIDE 0.9% 1000ML 1,000 ML IV ONE (10:30)
[2021-11-13 11:54] LABS: BASOPHILS # (AUTO) 0.1 (0.0-0.1); BASOPHILS % 0.9 % (0.0-1.0); EOSINOPHILS # (AUTO) 0.4 (0.0-0.4); EOSINOPHILS % 4.6 % (0.0-6.0); HEMATOCRIT 29.9 % (38.2-49.6); HEMOGLOBIN 8.9 g/dL (14.0-18.0); LYMPHOCYTES # (AUTO) 1.3 (1.0-3.2); LYMPHOCYTES % 13.6 % (18.0-39.1); MEAN CORPUSCULAR HEMOGLOBIN 22.8 pg (28-32); MEAN CORPUSCULAR HGB CONC 29.8 g/dL (31-35); MEAN CORPUSCULAR VOLUME 76.5 fL (81-99); MONOCYTES # (AUTO) 1.1 (0.2-0.8); MONOCYTES % 11.7 % (4.4-11.3); NEUTROPHILS # (AUTO) 6.3 (2.1-6.9); NEUTROPHILS % 68.4 % (38.7-80.0); PLATELET COUNT 275 x10e3/uL (140-360); RED BLOOD COUNT 3.91 x10e6/uL (4.3-5.7); RED CELL DISTRIBUTION WIDTH 18.5 % (11.7-14.4)
[2021-11-13 13:39] LABS: ANION GAP 14.9 mmol/L (8-16); CALCIUM 8.4 mg/dL (8.4-10.2); CREATININE, SERUM 0.78 mg/dL (0.72-1.25); POTASSIUM 3.9 mmol/L (3.5-5.1)
[2021-11-13] MEDS: METOPROLOL TARTRATE 25 MG TAB PO SCH (16:36)
[2021-11-13] MEDS: TAMSULOSIN HCL 0.4 MG CAP PO SCH (21:43)
[2021-11-13] MEDS: ATORVASTATIN 40 MG TAB PO SCH (21:43)
[2021-11-14] VITALS (7 sets, daily range): BP systolic 81–148; BP diastolic 57–68
[2021-11-14 05:44] LABS: BASOPHILS # (AUTO) 0.1 (0.0-0.1); BASOPHILS % 0.9 % (0.0-1.0); EOSINOPHILS # (AUTO) 0.6 (0.0-0.4); EOSINOPHILS % 5.7 % (0.0-6.0); HEMATOCRIT 27.3 % (38.2-49.6); HEMOGLOBIN 8.4 g/dL (14.0-18.0); LYMPHOCYTES # (AUTO) 1.9 (1.0-3.2); MEAN CORPUSCULAR HGB CONC 30.8 g/dL (31-35); MEAN CORPUSCULAR VOLUME 74.6 fL (81-99); MONOCYTES # (AUTO) 1.1 (0.2-0.8); MONOCYTES % 10.8 % (4.4-11.3); NEUTROPHILS # (AUTO) 6.1 (2.1-6.9); NEUTROPHILS % 62.5 % (38.7-80.0); PLATELET COUNT 293 x10e3/uL (140-360); RED BLOOD COUNT 3.66 x10e6/uL (4.3-5.7); RED CELL DISTRIBUTION WIDTH 18.5 % (11.7-14.4)
[2021-11-14 06:07] LABS: ANION GAP 12.8 mmol/L (8-16); CALCIUM 8.3 mg/dL (8.4-10.2); CREATININE, SERUM 0.7 mg/dL (0.72-1.25); POTASSIUM 3.8 mmol/L (3.5-5.1)
[2021-11-14] MEDS: FINASTERIDE 5 MG TAB PO SCH (08:56)
[2021-11-14] MEDS: OXYBUTYNIN CHLORIDE 5 MG TAB PO SCH (08:56)
[2021-11-14] MEDS: SENNA-S TABLET PO SCH (08:56)
[2021-11-14] MEDS: METFORMIN HCL 500 MG TAB PO SCH (08:57)
[2021-11-14] MEDS: POLYETHYLENE GLYCOL 3350 17 GM PACK PO SCH (08:58)
[2021-11-14] MEDS: INSULIN LISPRO 100 UNIT/1 ML 3ML VIAL SQ SCH (08:58)
[2021-11-14] MEDS: LACTULOSE SYRUP 20 GM/30 ML UDC PO SCH (08:58)
[2021-11-14] MEDS: METOPROLOL TARTRATE 25 MG TAB PO SCH (08:59)
== END 2021-11-14 14:12 | disposition home or self-care (01) | DRG 982 ==
LOC: MED/SURG2 13:01
PROVIDERS: ADMIT Internal Medicine; ATTEND Internal Medicine
PROC: 04LY3DZ Occlusion of Lower Artery with Intraluminal Device, Percutaneous Approach (ICD-10-PCS; principal; 2021-11-12)
PROC: B41C1ZZ Fluoroscopy of Pelvic Arteries using Low Osmolar Contrast (ICD-10-PCS; 2021-11-12)
PROC: B41J1ZZ Fluoroscopy of Other Lower Arteries using Low Osmolar Contrast (ICD-10-PCS; 2021-11-12)
DX: T83.021A Displacement of indwelling urethral catheter, initial encounter (principal); D62 Acute posthemorrhagic anemia; D68.9 Coagulation defect, unspecified; N40.1 Benign prostatic hyperplasia with lower urinary tract symptoms; R31.0 Gross hematuria; R33.8 Other retention of urine; Z86.718 Personal history of other venous thrombosis and embolism; Z79.01 Long term (current) use of anticoagulants; N31.9 Neuromuscular dysfunction of bladder, unspecified; N39.498 Other specified urinary incontinence; N32.81 Overactive bladder; Z20.822 Contact with and (suspected) exposure to COVID-19; I70.90 Unspecified atherosclerosis; F03.90 Unspecified dementia, unspecified severity, without behavioral disturbance, psychotic disturbance, mood disturbance, and anxiety; E11.51 Type 2 diabetes mellitus with diabetic peripheral angiopathy without gangrene; Z95.828 Presence of other vascular implants and grafts; E66.09 Other obesity due to excess calories; Z68.34 Body mass index [BMI] 34.0-34.9, adult; I48.0 Paroxysmal atrial fibrillation
CPT/HCPCS: 36415; 37244; 74470; 75726; 75736; 75774; 80048; 81001; 82948; 85025; 85610; 87086; 94799; C1760; C1769; C1894; J2001; J2185; J2250; J3010; J7030; J7050; Q9967

== ENCOUNTER 2022-03-20 18:26 | Emergency (ER) | payer MEDICARE ==
[~2022-03-20] VITALS: Ht 193 cm; Wt 127.9 kg
[2022-03-20] MEDS ORDERED: NITROFURANTOIN100 MG PO (19:53)
[2022-03-20] MEDS ORDERED: NITROFURANTOIN MACROCRYSTALS 100 MG CAP PO ONE (20:00)
[2022-03-20 20:07] LABS: CLARITY,URINE CLOUDY (CLEAR); COLOR,URINE AMBER (YELLOW)
[2022-03-20 20:08] LABS: KETONES,URINE TRACE (NEGATIVE); LEUKOCYTE ESTERASE ,URINE SMALL (NEGATIVE); NITRITE,URINE NEGATIVE (NEGATIVE); PROTEIN,URINE DIPSTICK 2+ (NEGATIVE); URINE UROBILINOGEN 0.2 mg/dL (0.2 - 1)
[2022-03-20 20:09] LABS: EPITHELIAL CELLS,URINE FEW /LPF; RBC,URINE >50 /HPF (0-5); WBC,URINE (MAN) 0-5 /HPF (0-5)
[2022-03-20 20:10] LABS: BACTERIA,URINE MODERATE /HPF
[2022-03-20] MEDS ORDERED: MACROBID 100 M100 MG PO (20:13)
== END 2022-03-20 20:45 | disposition home or self-care (01) ==
LOC: ER 18:33
DX: Z46.6 Encounter for fitting and adjustment of urinary device (principal); N39.0 Urinary tract infection, site not specified; I10 Essential (primary) hypertension; E11.9 Type 2 diabetes mellitus without complications; E78.5 Hyperlipidemia, unspecified; I50.9 Heart failure, unspecified; I48.91 Unspecified atrial fibrillation; Z86.73 Personal history of transient ischemic attack (TIA), and cerebral infarction without residual deficits
CPT/HCPCS: 81001; 87086; 99283

== ENCOUNTER 2022-05-06 19:52 | Emergency (ER) | payer MEDICARE ==
[~2022-05-06] VITALS: Ht 193 cm; Wt 127.9 kg
[~2022-05-06 19:52] MED LIST changes: +MACROBID 100 M100 MG PO; +NITROFURANTOIN100 MG PO
[2022-05-06] MEDS ORDERED: SODIUM CHLORIDE 0.9% 1000ML 1,000 ML IV ONE (21:00)
[2022-05-06 21:18] LABS: BASOPHILS # (AUTO) 0.1 (0.0-0.1); BASOPHILS % 0.7 % (0.0-1.0); EOSINOPHILS # (AUTO) 0.5 (0.0-0.4); EOSINOPHILS % 4.6 % (0.0-6.0); HEMATOCRIT 38.1 % (38.2-49.6); HEMOGLOBIN 11.5 g/dL (14.0-18.0); LYMPHOCYTES # (AUTO) 1.4 (1.0-3.2); LYMPHOCYTES % 11.5 % (18.0-39.1); MEAN CORPUSCULAR HEMOGLOBIN 24.3 pg (28-32); MEAN CORPUSCULAR HGB CONC 30.2 g/dL (31-35); MEAN CORPUSCULAR VOLUME 80.5 fL (81-99); MONOCYTES % 8.7 % (4.4-11.3); NEUTROPHILS # (AUTO) 8.8 (2.1-6.9); NEUTROPHILS % 74.2 % (38.7-80.0); PLATELET COUNT 295 x10e3/uL (140-360); RED BLOOD COUNT 4.73 x10e6/uL (4.3-5.7); RED CELL DISTRIBUTION WIDTH 19.9 % (11.7-14.4)
[2022-05-06 21:26] LABS: CLARITY,URINE CLOUDY (CLEAR); COLOR,URINE YELLOW (YELLOW); KETONES,URINE NEGATIVE (NEGATIVE); LEUKOCYTE ESTERASE ,URINE 1+ (NEGATIVE); NITRITE,URINE NEGATIVE (NEGATIVE); PROTEIN,URINE DIPSTICK >=300 (NEGATIVE); URINE UROBILINOGEN 0.2 mg/dL (0.2 - 1)
[2022-05-06 21:38] LABS: ALBUMIN 3.4 g/dL (3.5-5.0); ALBUMIN/GLOBULIN RATIO 0.9 (0.8-2.0); ANION GAP 15.8 mmol/L (8-16); CALCIUM 9.1 mg/dL (8.4-10.2); CREATININE, SERUM 0.84 mg/dL (0.72-1.25); POTASSIUM 4.8 mmol/L (3.5-5.1)
[2022-05-06 21:39] LABS: BACTERIA,URINE MANY /HPF; RBC,URINE >50 /HPF (0-5); WBC,URINE (MAN) >50 /HPF (0-5)
[2022-05-06 21:40] LABS: AMORPHOUS SEDIMENT,URINE MANY (FEW); EPITHELIAL CELLS,URINE FEW /LPF
[2022-05-06] MEDS ORDERED: CEPHALEXIN250 M1 PO ×2 (23:11→23:17)
[2022-05-06] MEDS ORDERED: DULCOLAX10 MG PR ×2 (23:14→23:17)
[2022-05-06] MEDS ORDERED: COLACE100 M1 PO ×2 (23:14→23:17)
[2022-05-06 23:20] VITALS: BP 102/65
== END 2022-05-06 23:27 | disposition home or self-care (01) ==
LOC: ER 20:04
DX: R10.30 Lower abdominal pain, unspecified (principal); N39.0 Urinary tract infection, site not specified; K59.00 Constipation, unspecified; I10 Essential (primary) hypertension; E11.9 Type 2 diabetes mellitus without complications; I50.9 Heart failure, unspecified; I48.91 Unspecified atrial fibrillation; I25.10 Atherosclerotic heart disease of native coronary artery without angina pectoris; E78.5 Hyperlipidemia, unspecified; D68.9 Coagulation defect, unspecified; Z86.73 Personal history of transient ischemic attack (TIA), and cerebral infarction without residual deficits
CPT/HCPCS: 36415; 80053; 81001; 85025; 87086; 87186; 99283; J7030

== ENCOUNTER 2022-08-02 19:09 | Emergency (ER) | payer MEDICARE ==
[~2022-08-02] VITALS: Ht 193 cm; Wt 81.6 kg
[~2022-08-02 19:09] MED LIST changes: +CEPHALEXIN250 M1 PO; +COLACE100 M1 PO; +DULCOLAX10 MG PR
[2022-08-02] MEDS ORDERED: SODIUM CHLORIDE 0.9% 1000ML 2,450 ML IV SCH (19:30)
[2022-08-02] MEDS ORDERED: Vancomycin IV 1.25 GM in SODIUM CHLORIDE 0.9% 250ML 250 ML IV ONE (19:30)
[2022-08-02] MEDS ORDERED: DILTIAZEM HCL IV 5MG/ML 25 ML VIAL ONE ×2 (19:38→20:50)
[2022-08-02] MEDS ORDERED: DILTIAZEM HCL 5 MG/ML 5 ML VIAL IV ONE (19:45)
[2022-08-02] MEDS ORDERED: PIPERACILLIN/TAZOBACTAM 3.375 GM VIAL ONE (19:48)
[2022-08-02] MEDS ORDERED: SODIUM CHLORIDE 0.9% 1000ML 2,000 ML ONE (19:48)
[2022-08-02 20:06] LABS: BASOPHILS # (AUTO) 0.1 (0.0-0.1); BASOPHILS % 0.7 % (0.0-1.0); EOSINOPHILS # (AUTO) 0.2 (0.0-0.4); EOSINOPHILS % 0.9 % (0.0-6.0); HEMATOCRIT 41.6 % (38.2-49.6); HEMOGLOBIN 13.5 g/dL (14.0-18.0); LYMPHOCYTES # (AUTO) 2.3 (1.0-3.2); LYMPHOCYTES % 10.8 % (18.0-39.1); MEAN CORPUSCULAR HEMOGLOBIN 26.2 pg (28-32); MEAN CORPUSCULAR HGB CONC 32.5 g/dL (31-35); MEAN CORPUSCULAR VOLUME 80.6 fL (81-99); MONOCYTES # (AUTO) 0.9 (0.2-0.8); MONOCYTES % 4.2 % (4.4-11.3); NEUTROPHILS # (AUTO) 17.7 (2.1-6.9); NEUTROPHILS % 82.8 % (38.7-80.0); PLATELET COUNT 355 x10e3/uL (140-360); RED BLOOD COUNT 5.16 x10e6/uL (4.3-5.7)
[2022-08-02] MEDS ORDERED: DILTIAZEM HCL IV SOLN 125 MG in SODIUM CHLORIDE 0.9% 100 ML IV SCH (20:15)
[2022-08-02 20:22] LABS: ALBUMIN 3.2 g/dL (3.5-5.0); ALBUMIN/GLOBULIN RATIO 0.7 (0.8-2.0); ANION GAP 20.9 mmol/L (8-16); CALCIUM 10.1 mg/dL (8.4-10.2); CREATININE, SERUM 0.96 mg/dL (0.72-1.25); POTASSIUM 4.9 mmol/L (3.5-5.1)
[2022-08-02] MEDS ORDERED: SODIUM CHLORIDE 0.9% 100 ML ONE (20:49)
[2022-08-02 21:02] LABS: CLARITY,URINE CLOUDY (CLEAR); COLOR,URINE YELLOW (YELLOW)
[2022-08-02 21:03] LABS: KETONES,URINE 1+ (NEGATIVE); LEUKOCYTE ESTERASE ,URINE 1+ (NEGATIVE); NITRITE,URINE NEGATIVE (NEGATIVE); PROTEIN,URINE DIPSTICK >=300 (NEGATIVE); URINE UROBILINOGEN 1 mg/dL (0.2 - 1)
[2022-08-02 21:09] LABS: AMORPHOUS SEDIMENT,URINE MANY (FEW); BACTERIA,URINE MANY /HPF; EPITHELIAL CELLS,URINE FEW /LPF; RBC,URINE >50 /HPF (0-5); TRANSITIONAL EPI CELLS,URINE FEW; WBC,URINE (MAN) >50 /HPF (0-5)
[2022-08-02] MEDS ORDERED: AMIODARONE HCL 150 MG/100 ML BAG IV ONE (22:00)
[2022-08-02] MEDS ORDERED: AMIODARONE 900MG 500 ML IV SCH (22:00)
[2022-08-02] MEDS ORDERED: SODIUM CHLORIDE 0.9% 500ML 500 ML ONE (22:06)
[2022-08-02] MEDS ORDERED: Vancomycin IV 1 GM VIAL ONE (22:16)
[2022-08-02] MEDS ORDERED: Vancomycin IV 500 MG ONE (22:16)
[2022-08-02] MEDS ORDERED: SODIUM CHLORIDE 0.9% 250ML 250 ML ONE (22:16)
[2022-08-02] MEDS ORDERED: MAGNESIUM SULFATE 2GM/50ML 50 ML IV ONE ×2 (22:45→23:50)
[2022-08-02] MEDS ORDERED: ACETAMINOPHEN 1000 MG/100 ML IV STA (23:36)
[2022-08-02] MEDS ORDERED: ACETAMINOPHEN 1000 MG/100 ML 100 ML IV ONE (23:50)
[2022-08-03 00:38] VITALS: O2SAT 98
== END 2022-08-03 01:05 | disposition other institution (70) ==
LOC: ER 19:26
DX: R50.9 Fever, unspecified (principal); A41.9 Sepsis, unspecified organism; R65.21 Severe sepsis with septic shock; I48.20 Chronic atrial fibrillation, unspecified; N39.0 Urinary tract infection, site not specified; E11.65 Type 2 diabetes mellitus with hyperglycemia; I10 Essential (primary) hypertension; E78.5 Hyperlipidemia, unspecified; I50.9 Heart failure, unspecified; I25.10 Atherosclerotic heart disease of native coronary artery without angina pectoris; Z20.822 Contact with and (suspected) exposure to COVID-19; Z86.73 Personal history of transient ischemic attack (TIA), and cerebral infarction without residual deficits
CPT/HCPCS: 36415; 71045; 80053; 81001; 82550; 82553; 83605; 83735; 84484; 85025; 87040; 87086; 87186; 87400; 99285; J0131; J2543; J3370 ×2; J3475; J7030; J7040; J7050 ×2; U0002